=== PATIENT | male | born 1980 | race Caucasian/White ===

== ENCOUNTER → 2016-10-19 | Outpatient (CLI) | payer BC ==
[~2016-10-19] MED LIST: CETI10TA84 PO
== END | disposition home or self-care (01) ==
LOC: C.PATHSPEC 18:03
PROVIDERS: ATTEND Urology
DX: Z30.2 Encounter for sterilization (principal)

== ENCOUNTER → 2016-10-29 | Outpatient (CLI) | payer BC ==
--- NOTE | 2016-10-29 10:54 | DIAGNOSTIC IMAGING REPORT ---
SCROTAL ULTRASOUND CLINICAL HISTORY: Testicular pain. COMPARISON STUDY: None. TECHNIQUE: Grayscale and color and duplex Doppler sonography of the scrotum was performed. FINDINGS: The right testis measures 4.4 x 2.4 x 3.2 cm and the left measures 4.8 x 2.6 x 3.1 cm. There is no testicular mass and color flow within each testis is symmetric. There is no evidence of epididymitis. There are small bilateral hydroceles. There is a small left varicocele. IMPRESSION: 1. Normal sonographic appearance of the testes. 2. Small left varicocele and small bilateral hydroceles. No evidence of epididymitis. Electronically signed by: Hakan Owens M.D. 10/29/2016 10:52 AM Dictated Date/Time: 10/29/2016 10:51 AM
== END | disposition home or self-care (01) ==
LOC: C.ULTR 09:59
PROVIDERS: ATTEND Nurse Practitioner Adult Health
DX: N50.819 Testicular pain, unspecified (principal); I86.1 Scrotal varices; N43.3 Hydrocele, unspecified

== ENCOUNTER → 2017-01-06 | Outpatient (CLI) | payer BC ==
[2017-01-06 12:18] LABS: BASO % 0.3 %; BASO ABS # 0.03 K/uL (0-0.2); COMPLETE YES; EOS % 1.6 %; IG% 0.1 %; LYMPH % 31.7 %; LYMPH ABS # 2.77 K/uL (1.2-3.4); MEAN CORPUSCULAR HEMOGLOBIN 30.8 pg (25-34); MEAN CORPUSCULAR HGB CONC 35.3 g/dl (32-36); MEAN PLATELET VOLUME 9.6 fL (7.4-10.4); MONO % 7.9 %; NEUT % 58.4 %; PLATELET COUNT 387 K/uL (130-400); RED BLOOD COUNT 5.17 M/uL (4.7-6.1); WHITE BLOOD COUNT 8.73 K/uL (4.8-10.8)
[2017-01-06 12:26] LABS: PARTIAL THROMBOPLASTIN RATIO 1.3; PROTHROMBIN TIME (PATIENT) 10.9 SECONDS (9.0-12.0)
== END | disposition home or self-care (01) ==
LOC: C.LAB 09:56
DX: Z01.818 Encounter for other preprocedural examination (principal)

== ENCOUNTER → 2017-01-22 | Day surgery (SDC) | payer BC ==
[2017-01-18 14:06] VITALS: Ht 182.9 cm; Wt 93.2 kg
[~2017-01-22] VITALS: Ht 182.9 cm; Wt 93.2 kg
[~2017-01-22] MED LIST changes: +ATROPINE SULFATE 0.1 MG/ML 5ML SYR IV PRN; +BACITRACIN OINT 15 GM TUBE ONE; +CEFAZOLIN 2000 MG/60 ML D5W IV SCH; +DEXAMETHASONE SOD INJ 4 MG/ML VIAL ONE; +EpHEDrine SULFATE INJ 50 MG/ML AMP IV PRN; +EpINEphrine INJ 1MG/ML AMP 1 MG/ML AMP ONE; +FENTANYL CITRATE INJ 50 MCG/1 ML 2 ML VIAL IV PRN; +FENTANYL CITRATE INJ 50 MCG/1 ML 2 ML VIAL ONE; +FLUMAZENIL 0.1 MG/1 ML 10 ML VIAL IV PRN; +HYDROCODONE/ACETAMOPHEN 5/325MG TAB PO PRN; +LABETALOL HCL IV 5 MG/ML 20ML IV PRN; +LACTATED RINGER'S 1000ML 1,000 ML IV SCH; +LIDOCAINE 4% MPF SOAK 5 ML = 1 DOSE TOP ONE; +LIDOCAINE HCL 2% 2 ML VIAL (20MG/ML) ONE; +LIDOCAINE/EPINEPHRINE 1% INJ 50 ML VIAL ONE; +MIDAZOLAM HCL 1 MG/ML 2ML VIAL ONE; +NALOXONE HCL 0.4 MG/1 ML VIAL/CARP IV PRN; +ONDANSETRON INJ 2 MG/ML 2 ML VIAL IV PRN; +ONDANSETRON INJ 2 MG/ML 2 ML VIAL ONE; +OXYMETAZOLINE HCL 0.05% NA SPR 15 ML BTL PRN; +OXYMETAZOLINE HCL 0.05% NA SPR 15 ML BTL SCH; +PROMETHAZINE HCL INJ 12.5 MG in SODIUM CHLORIDE 0.9% 50ML 50 ML IV PRN; +PROPOFOL IV EMULSION 10 MG/ML 20 ML VIAL IV ONE; +SUCCINYLCHOLINE CHLORIDE 20 MG/ML 10 ML VIAL IV ONE
--- NOTE | 2017-01-22 13:30 | History & Physical Bridge - SC ---
H&P Re-Evaluation Bridge Note: I have examined the patient, reviewed the History & Physical and in the interval since the performance of the History & Physical I have noted the following changes of clinical significance: No changes noted
--- NOTE | 2017-01-22 13:32 | History and Physical: Surg Cnt ---
History & Physical Date Jan 22, 2017. Chief Complaint SEPTAL DEVIATION AND BILATERAL INFERIOR TURBINATE HYPERTROPHY History of Present Illness The patient is a 36 year old male with complaints of NASAL AIRWAY OBSTRUCTION. Past Medical/Surgical History PMH: NONE PSH: S/P ORAL SURGERY, S/P VASECTOMY Additional History Hepatic Disease: No Endocrine Disorder: No Kidney Disease: No Hypertension: No Heart Disease: No Bleeding Tendencies: No Infectious Diseases: No Allergies Coded Allergies: No Known Allergies (Unverified , 01/18/17) Home Medications Scheduled Cetirizine (Zyrtec), 10 MG PO QAM Physical Examination Skin: warm/dry, no rash Eyes: normal inspection, EOMI, sclerae normal ENT: + pertinent finding (R DNS, L>R ITH) Neck: supple, no adenopathy, trachea midline Respiratory/Chest: lungs clear, normal breath sounds, no respiratory distress Cardiovascular: regular rate, rhythm, no edema, no murmur Neurologic/Psych: no motor/sensory deficits, alert, normal reflexes, oriented x 3 Diagnosis SEPTAL DEVIATION AND BILATERAL INFERIOR TURBINATE HYPERTROPHY Plan of Treatment SEPTOPLASTY AND BILATERAL INFERIOR TURBINATE REDUCTION
--- NOTE | 2017-01-22 14:03 | [facility] Operative Report ---
Operative Report Operative Date Jan 22, 2017. 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 SEVERE R DNS 2. L>R ITH Specimens None I attest to the content of the Intraoperative Record and any orders documented therein. Any exceptions are noted below.
--- NOTE | 2017-01-22 14:05 | Discharge Instructions ---
Discharge Instructions Date of Service Jan 22, 2017. Admission Reason for Admission: Nasal Septal Deviation, Hypertrophy Both Inferior Discharge Discharge Diagnosis / Problem: SAME Discharge Goals Goal(s): Therapeutic intervention Activity Recommendations Activity Limitations: as noted below 1. NO NOSE BLOWING FOR 2WKS 2. LIGHT ACTIVITY FOR 2WKS 3. NO DRIVING WHILE ON NORCO . Current Hospital Diet Patient's current hospital diet: Discharge Diet Recommended Diet: Regular Diet Procedures Procedures Performed: Septoplasty And Bilateral Inferior Outfracture And Turbinoplasty Pending Studies Studies pending at discharge: no Medical Emergencies . Who to Call and When: Medical Emergencies: If at any time you feel your situation is an emergency, please call 911 immediately. . Non-Emergent Contact Non-Emergency issues call your: Surgeon . . "Provider Documentation" section prepared by Simeon Murry. . VTE Core Measure Inpt VTE Proph given/why not?: SCD's
--- NOTE | 2017-01-22 14:25 | OPERATIVE REPORT ---
DATE OF OPERATION: 01/22/2017 PREOPERATIVE DIAGNOSES: 1. Right septal deviation. 2. Left greater than right inferior turbinate hypertrophy. POSTOPERATIVE DIAGNOSES: 1. Right septal deviation. 2. Left greater than right inferior turbinate hypertrophy. PROCEDURES: 1. Septoplasty. 2. Bilateral inferior turbinate outfracture and turbinoplasty. SURGEON: Dr. Murry. ANESTHESIA: General endotracheal. ESTIMATED BLOOD LOSS: 10 mL. FINDINGS: 1. Severe right septal deviation. 2. Left greater than right inferior turbinate hypertrophy. SPECIMENS: None. COMPLICATIONS: None. INDICATIONS FOR THE PROCEDURE: The patient is a 36-year-old male with right greater than left nasal airway obstruction which has been unresponsive to maximal medical therapy including allergy treatment. He was found to have severe right septal deviation and left greater than right inferior turbinate hypertrophy. He presents for the above-mentioned procedure on an outpatient elective basis. OPERATION AND FINDINGS: DETAILS OF PROCEDURE: After informed consent had been obtained from the patient, the patient was wheeled to the operating room and placed on the operating room table in supine position. Monitors were placed. After induction of general endotracheal anesthesia, the patient was prepped in the usual fashion for septoplasty. 6 mL of 1% lidocaine with 1:100,000 epinephrine used to inject the nasal septum bilaterally, thereby performing hydrodissection of the mucoperichondrial mucoperiosteal flaps. Lidocaine and epinephrine pledgets were then placed in the bilateral nasal cavities and pressure applied. Curved iris scissors were used to trim the patient's nasal vibrissae. The pledgets were removed and a #15 scalpel was used to make a left Zeeshan incision through which a left-sided mucoperichondrial mucoperiosteal flap was elevated. A #15 scalpel was then used to incise the quadrangular cartilage with care to preserve a 1.5 cm dorsal and caudal strut through which the right-sided mucoperichondrial mucoperiosteal flap was elevated. Elisabet silver knife was then used to remove the deviated portion of the quadrangular cartilage. The V-shaped osteotome was then used to remove a small amount of septal bone posteriorly. Kavitha forceps was used to remove septal cartilage and bone superiorly that was impinging on the airway to the right hand side. After this was removed, the septum was midline. The septal cavity was suctioned. The left Zeeshan incision was closed with several simple opted 4-0 chromic sutures. A 4-0 plain gut suture on a Lam needle was then used to perform a quilting stitch of the mucoperichondrial mucosa flaps bilaterally to help prevent septal hematoma. A Crisostomo elevator was then used to infracture and subsequently infracture the inferior turbinates bilaterally. These were injected with 3 mL of 1% lidocaine with 1:100,000 epinephrine. A 2.0 mm turbinate blade using powered instrumentation was then used to perform bilateral inferior turbinoplasties in the submucosal fashion. The sinonasal cavities were then suctioned. An orogastric tube was placed and stomach was suctioned free of air and stomach contents. This marked the end of the case. The patient tolerated the procedure well. There were no apparent complications. The patient was extubated and transferred to recovery room in stable condition. I attest to the content of the Intraoperative Record and any orders documented therein. Any exception s are noted below.
[2017-01-22 14:48] VITALS: TEMP 36.5
--- NOTE | 2017-01-22 15:02 | Anesthesia Progress Nt - [facility] ---
Anesthesia Post Op Note Date & Time Jan 22, 2017 at 15:02 Vital Signs Pain Intensity: 3 Vital Signs Past 12 Hours Date Time Temp Pulse Resp B/P (MAP) Pulse Ox O2 Delivery O2 Flow Rate FiO2 01/22/17 14:44 36.8 93 Room Air 01/22/17 14:42 75 15 01/22/17 14:42 78 15 126/85 93 01/22/17 14:42 75 15 01/22/17 14:42 78 15 126/85 93 01/22/17 14:41 73 23 01/22/17 14:41 65 23 91 01/22/17 14:37 146/120 01/22/17 14:36 76 16 01/22/17 14:36 75 16 94 01/22/17 14:33 128/77 01/22/17 14:31 71 19 97 01/22/17 14:31 73 19 01/22/17 14:27 130/90 01/22/17 14:26 81 17 94 01/22/17 14:26 81 17 01/22/17 14:22 128/84 01/22/17 14:21 92 26 01/22/17 14:21 91 26 93 01/22/17 14:18 144/82 01/22/17 14:16 92 25 93 01/22/17 14:16 93 25 01/22/17 14:13 159/84 01/22/17 14:11 36.8 92 16 159/84 95 Humidified Oxygen Mask 01/22/17 12:03 37.1 66 18 137/101 (113) 98 Room Air Notes Mental Status: alert / awake / arousable, participated in evaluation Pt Amnestic to Procedure: Yes Nausea / Vomiting: adequately controlled Pain: adequately controlled Airway Patency, RR, SpO2: stable & adequate BP & HR: stable & adequate Hydration State: stable & adequate Anesthetic Complications: no major complications apparent
[2017-01-22 15:16] VITALS: BP 115/80; PULSE 67; O2SAT 93
== END | disposition home or self-care (01) ==
LOC: X.SURG 11:54
DX: J34.2 Deviated nasal septum (principal); J34.3 Hypertrophy of nasal turbinates